=== PATIENT | male | born 1945 | race Caucasian/White ===

== ENCOUNTER 2018-01-30 13:59 | Emergency (ER) | payer MEDICARE, OTHER, SELFPAY ==
[2018-01-30] VITALS (14 sets, daily range): BP systolic 129–164; BP diastolic 67–80; PULSE 83–104; RESP 15–22; TEMP 36.8; O2SAT 97–100
--- NOTE | 2018-01-30 14:10 | DI.CT.S_ITS ---
PROCEDURE: CT HEAD/BRAIN WO CON INDICATIONS: stroke like symptoms TECHNIQUE: Noncontrast 4.5 mm thick angled axial sections acquired from the foramen magnum to the vertex, with coronal and sagittal reformats. For radiation dose reduction, the following was used: automated exposure control, adjustment of mA and/or kV according to patient size. COMPARISON: None. FINDINGS: Image quality: Excellent. CSF spaces: Basal cisterns are patent. No extra-axial fluid collections. The ventricles are symmetric in size and shape. Brain: No intracranial bleeds or masses. Small hyperdensity noted in the distal left middle cerebral artery M1 segment (series 4, image 32; series 2, image 9). There is cerebral volume loss for age, with resultant ventricular and sulcal prominence. There are periventricular and deep white matter chronic small vessel ischemic changes. Old, small, lacunar infarct in the left centrum semiovale. There is intracranial internal carotid artery atherosclerosis. Skull and face: Calvarium and visualized facial bones appear intact, without suspicious lesions. Sinuses: Visualized sinuses and mastoids are clear. IMPRESSION: 1. Possible small hyperdense clot noted in the distal M1 segment of the right middle cerebral artery. Recommend CTA of the head for further evaluation. 2. No intracranial hemorrhage. Dictated by: Bethany Neri MD, PhD on 01/30/2018 at 14:32 Approved by: Bethany Neri MD, PhD on 01/30/2018 at 14:37
--- NOTE | 2018-01-30 14:47 | DI.CT.S_ITS ---
PROCEDURE: CT ANGIO HEAD AND NECK INDICATIONS: abnormal finding on CT TECHNIQUE: Pre-contrast 4.5 mm thick sections acquired from the foramen magnum to the vertex. After the administration of intravenous contrast, 1 mm thick sections acquired from the aortic arch through the [place]. Post-contrast 4.5 mm thick sections then re-acquired from the foramen magnum to the vertex. 3-dimensional uluduee-kzyrxctuk-mlhmxcwhou (MIP) and/or volume rendering reformats were acquired of the central intracranial vasculature and neck separately. COMPARISON: None. FINDINGS: Image quality: Excellent. BRAIN: CSF spaces: Ventricles are normal in size and shape. Basal cisterns are patent. No extra-axial fluid collections. Brain: No midline shift. No intracranial bleeds or masses. Rodríguez-white matter interface appears intact. Skull and face: Calvarium and facial bones appear intact, without suspicious lesions. Orbits appear normal. Sinuses: Scattered mucosal thickening noted in the anterior ethmoid air cells. The mastoids are clear. HEAD CT ANGIOGRAPHY: Anterior circulation: Intracranial internal carotid arteries are normal in size and flow. The atherosclerotic calcifications noted in the cavernous segments of the internal carotid arteries bilaterally which do not cause of measurable stenosis. The flow within the paired anterior cerebral arteries is normal and symmetric. The flow within the middle cerebral arteries is normal and symmetric. The anterior communicating artery is seen. No aneurysms are seen. Posterior circulation: Visualized portions of the vertebral arteries demonstrate normal caliber, and join to form a normal appearing basilar artery. Flow within the posterior cerebral arteries is normal and symmetric. No aneurysms are seen. Normal contrast opacification of the dural sinuses. NECK CT ANGIOGRAPHY: Carotid system: The great vessels demonstrate a conventional anatomy as they arise from the aortic arch. Atherosclerotic calcifications noted in the visualized left coronary vasculature, the aortic arch and origins of the great vessels. The origins of the common carotid arteries appear patent. The common carotid arteries demonstrate normal caliber and courses. Atherosclerotic calcification and soft plaque at origins of internal carotid arteries bilaterally which causes less than 50% stenosis of the vessels. Posterior circulation: The origins of the vertebral arteries both appear widely patent. The more superior extracranial portions of both vertebral arteries also demonstrate normal courses and calibers. They join to form a normal appearing basilar artery. Soft tissues: Visualized neck soft tissues demonstrate no suspicious abnormalities. Bones: No suspicious bony lesions. Mild cervical spine degenerative disc disease and facet arthropathy noted. Visualized cervical spine appears normally aligned. IMPRESSION: 1. No acute intracranial disease process. 2. No large vessel occlusion, hemodynamically significant stenosis, vascular dissection or aneurysm. 3. Less than 50% stenosis of the origins of the internal carotid arteries bilaterally. 4. The vertebral arteries are fully patent. Any quantitative measurements of stenosis were performed using NASCET criteria. Dictated by: Bethany Neri MD, PhD on 01/30/2018 at 16:42 Approved by: Bethany Neri MD, PhD on 01/30/2018 at 16:54
--- NOTE | 2018-01-30 14:47 | ED.NEUROSD ---
HPI - Neuro Symptoms/Deficit General Chief Complaint: Neuro Symptoms/Deficit Stated Complaint: right arm went limp Time Seen by Provider: 01/30/18 14:08 Source: patient and family Mode of arrival: ambulatory Limitations: no limitations History of Present Illness HPI Narrative: 72-year-old former smoker presents with his in the chief complaint of sudden-onset right upper extremity weakness, trouble with coordination, and numbness and tingling that started at 1:00 p.m. while shopping at [employer]. The patient denies any other symptoms such as blurred vision, trouble with speech or ambulating. He presented to our department with these complaints and was not initially activated as a code stroke but was soon after arrival. Patient denies any headache, history of bleeding diatheses, use of blood thinners or recent stroke Onset (ago): hour(s) Last Observed Normal: 13:00 Timing confirmed by: spouse Location: right arm History of same: No Severity: mild Quality: weak, numb and tingling Relieving factors: none Exacerbating factors: none On Anticoagulants: No Associated symptoms: denies other symptoms Treatments Prior to Arrival: none Related Data Home Medications Medication Instructions Recorded Confirmed Vinny's Leg Cramp 1 tab PO BID 01/30/18 01/30/18 cyanocobalamin (vitamin B-12) 5,000 mcg SUBLINGUAL DAILY 01/30/18 01/30/18 [Vitamin B-12] finasteride 5 mg PO DAILY 01/30/18 01/30/18 lisinopril 10 mg PO DAILY 01/30/18 01/30/18 aspirin 81 mg tablet,delayed 81 mg PO DAILY 02/08/18 release atorvastatin 10 mg tablet 10 mg PO DAILY 02/08/18 Previous Rx's Medication Instructions Recorded tamsulosin 0.4 mg capsule 0.4 mg PO QDAY #90 cap 07/28/17 Allergies Allergy/AdvReac Type Severity Reaction Status Date / Time shellfish derived Allergy Severe ANAPHYLACTIC Verified 01/30/18 14:06 [SHELLFISH DERIVED] SHOCK Review of Systems Review of Systems All systems reviewed & are unremarkable except as noted in HPI and below Constitutional Denies chills, Denies fever(s), Denies lethargy and Reports weakness Eyes Denies change in vision, Denies eye discharge, Denies irritation and Denies loss of vision ENT Ears, Nose, Mouth, and Throat: Denies change in voice, Denies neck pain and Denies sore throat Cardiovascular Denies chest pain, Denies irregular heart rhythm, Denies lightheadedness, Denies palpitations, Denies dyspnea, Denies dyspnea on exertion and Denies orthopnea Respiratory Denies cough, Denies dyspnea, Denies dyspnea on exertion and Denies wheezing Gastrointestinal Gastrointestinal: Denies abdominal pain, Denies change in bowel habits, Denies diarrhea, Denies nausea and Denies vomiting Genitourinary Denies hematuria, Denies flank pain, Denies urinary incontinence and Denies urinary urgency Musculoskeletal Reports muscle weakness, Denies neck pain and Reports tingling Integumentary/Breasts Denies pruritus, Denies erythema, Denies rash and Denies wounds Neurologic Denies confusion, Denies loss of vision, Reports sensory deficit, Reports tingling and Reports weakness Psychiatric Denies anxiety, Denies confusion, Denies depression, Denies homicidal ideation and Denies suicidal ideation Endocrine Denies palpitations Hematologic/Lymphatic Denies easy bruising Allergic/Immunologic Denies wheezing [facility] Medical History Colon polyps (Resolved) History of elevated PSA (Chronic) Benign non-nodular prostatic hyperplasia with lower urinary tract symptoms (Chronic 05/13/15) Essential hypertension (Chronic 05/13/15) Pure hypercholesterolemia (Chronic 05/13/15) BPH (benign prostatic hyperplasia) (Chronic) Elevated PSA (Chronic) Hyperlipemia (Chronic) Hypertension (Chronic) Cataracts, bilateral (Resolved 03/2016) Surgical History Hx of prostate biopsy (Resolved ~2001) Hx of cataract surgery (Resolved ~04/2016) Family History Mother Parkinson's disease Sister Cancer Social History Smoking Status: Former smoker Exam Narrative Exam Narrative: GENERAL: This is a well-nourished, well-developed patient, in mild distress. HEAD: Atraumatic. Normocephalic. No temporal or scalp tenderness. EYES: Pupils equal round and reactive. Extraocular motions intact. No scleral icterus. No injection or drainage. ENT: Nose without bleeding, purulent drainage or septal hematoma. Throat without erythema, tonsillar hypertrophy or exudate. Uvula midline. Airway patent. NECK: Trachea midline. No JVD or lymphadenopathy. Supple, nontender, no meningeal signs. CARDIOVASCULAR: Regular rate and rhythm without murmurs, gallops, or rubs. RESPIRATORY: Clear to auscultation. Breath sounds equal bilaterally. No wheezes, rales, or rhonchi. GASTROINTESTINAL: Abdomen soft, non-tender, nondistended. No hepato-splenomegaly, or palpable masses. No guarding. EXTREMITIES: No clubbing, cyanosis, or edema. No joint tenderness, effusion, or edema noted. BACK: Nontender without deformity or crepitance. No flank tenderness. NEURO: AOx3. See NIH SKIN: No rash or erythema. Initial Vital Signs Initial Vital Signs: Vital Signs Temperature 98.2 F 01/30/18 14:06 Pulse Rate 83 01/30/18 14:06 Respiratory Rate 15 01/30/18 14:06 Blood Pressure 164/72 H 01/30/18 14:06 Pulse Oximetry 100 01/30/18 14:06 Course Orders Ordered: Discontinued Medications Alteplase, Recombinant (Activase) 7 mg 0.09 mg/kg (7 mg) IV NOW ONE Stop: 01/30/18 15:05 Last Admin: 01/30/18 15:07 Dose: 7 mg Alteplase, Recombinant (Activase) 64 mg 0.81 mg/kg (64 mg) IV NOW ONE Stop: 01/30/18 15:05 Last Admin: 01/30/18 15:13 Dose: 64 mg Aspirin (Aspirin Chew) 324 mg PO NOW ONE Stop: 01/30/18 14:42 Last Admin: 01/30/18 14:51 Dose: 324 mg Sodium Chloride (Normal Saline 0.9%) 1,000 mls @ 150 mls/hr IV CONT MARIBETH Last Infusion: 01/30/18 16:13 Dose: 0 mls/hr Admin: 01/30/18 14:51 Dose: 150 mls/hr Reevaluation(s) Reevaluation #1: NIHSS remains unchanged. Patient and consented for TPA tPA Contraindications for Ischemic Stroke from [employer] [place] on 01/30/2018 All calculations should be rechecked by clinician prior to use RESULT SUMMARY: Patient does NOT meet inclusion criteria for tPA. INPUTS: Age ?19 ?> 0 = No Clinical diagnosis of ischemic stroke causing neurological deficit ?> 0 = No Time of symptom onset <4.5 hours ?> 0 = No Intracranial hemorrhage on CT ?> 0 = No Clinical presentation suggests subarachnoid hemorrhage ?> 0 = No Neurosurgery, head trauma, or stroke in past 3 months ?> 0 = No Uncontrolled hypertension (>185 mmHg SBP or >110 mmHg DBP) ?> 0 = No History of intracranial hemorrhage ?> 0 = No Known intracranial arteriovenous malformation, neoplasm, or aneurysm ?> 0 = No Active internal bleeding ?> 0 = No Suspected/confirmed endocarditis ?> 0 = No Known bleeding diathesis ?> 0 = No Abnormal blood glucose (<50 mg/dL) ?> 0 = No Only minor or rapidly improving stroke symptoms ?> 0 = No Major surgery or serious non-head trauma in the previous 14 days ?> 0 = No History of gastrointestinal or urinary tract hemorrhage within 21 days ?> 0 = No Seizure at stroke onset ?> 0 = No Recent arterial puncture at a noncompressible site ?> 0 = No Recent lumbar puncture ?> 0 = No Post myocardial infarction pericarditis ?> 0 = No ?> 0 = No Age >80 years ?> 0 = No History of prior stroke and diabetes ?> 0 = No Any active anticoagulant use (even with INR <1.7) ?> 0 = No <calculator id='[id number]'>NIHSS</calculator> >25 ?> 0 = No CT shows multilobar infarction (hypodensity >1/3 cerebral hemisphere) ?> 0 = No tPA (Tissue Plasminogen Activator) Dosing for Stroke Calculator from [employer] [place] on 01/30/2018 All calculations should be rechecked by clinician prior to use RESULT SUMMARY: 7.1 mg Bolus dose, given IV over 1 min 64.2 mg Infusion, given IV over 60 mins 28.6 mg Waste, to be discarded INPUTS: Weight ?> 79.3 kg Approved by: Bethany Neri MD, PhD on 01/30/2018 at 14:37 Reevaluation #2: tPA bolus @ 1507 (7.1mg) tPA drip (64.2mg) Reevaluation #3: patient and family have had all questions answered to their apparent satisfaction. RUE now has full function. Patient denies KRAUS, abdominal pain, N/V, foul taste in mouth. Time: 19:07 Consultations Consultation #1: call to [facility] Stroke on receipt of Head CT. Discussion of case, lack of contraindications, review of CT leads to decision to recommend TPA. Proceed to CTA Consultation #2: Neurology is happy to accept post tpa patient at [facility], but prior to transfer they switch location to [place]. Hospitalist (Dr. Singh) Vital Signs - 8 hr 01/30/18 14:06 01/30/18 15:21 01/30/18 15:26 Temperature 98.2 F Pulse Rate 83 96 H 98 H Respiratory Rate 15 18 16 Blood Pressure 164/72 H Blood Pressure [Left Arm] 152/77 H 149/77 H Pulse Oximetry 100 97 99 01/30/18 15:30 01/30/18 15:45 01/30/18 16:00 Temperature Pulse Rate 97 H 87 100 H Respiratory Rate 18 18 20 Blood Pressure Blood Pressure [Left Arm] 143/80 H 141/78 H 136/73 Pulse Oximetry 98 98 99 01/30/18 16:30 01/30/18 16:49 01/30/18 17:14 Temperature Pulse Rate 99 H 100 H 98 H Respiratory Rate 21 22 Blood Pressure Blood Pressure [Left Arm] 148/67 H 137/70 136/68 Pulse Oximetry 98 98 97 01/30/18 17:30 01/30/18 18:10 01/30/18 19:11 Temperature Pulse Rate 98 H 104 H 95 H Respiratory Rate 20 20 18 Blood Pressure Blood Pressure [Left Arm] 142/74 H 140/71 137/75 Pulse Oximetry 97 98 98 MDM - Neuro Symptoms/Deficit Differential Diagnosis Likely cerebrovascular accident Medical Records Attestation: I reviewed the patient's medical records. Lab Data Attestation: I reviewed the patient's lab results. Result diagrams: 01/30/18 15:06 01/30/18 15:06 Lab Results 01/30/18 01/30/18 01/30/18 Range/Units 15:00 15:06 15:06 WBC 11.1 H (4.5-11.0) X10^3/uL RBC 4.82 (4.5-5.9) X10^6/uL Hgb 14.5 (13.5-17.5) g/dL Hct 42.5 (41-53) % MCV 88.2 (80-100) fL MCH 30.1 (26-34) PG MCHC 34.2 (30-36) % RDW 13.3 (11.6-14.8) % Plt Count 304 (150-400) X10^3/uL Neut % (Auto) 75.1 H (50-75) % Lymph % (Auto) 16.3 L (25-40) % [place] % (Auto) 6.6 (3-14) % Eos % (Auto) 1.2 L (2-4) % Baso % (Auto) 0.8 (0-2) % Neut # (Auto) 8300 H (4724-6671) /uL PT 10.5 (10.1-12.7) SECONDS INR 1.0 (0.9-1.3) APTT 25 L (26.4-36.2) SECONDS Sodium (137-145) mmol/L Potassium (3.4-5.1) mmol/L Chloride (98-107) mmol/L Carbon Dioxide (22-32) mmol/L BUN (9-20) mg/dL Creatinine (0.66-1.25) mg/dL Estimated GFR (>60) mL/min BUN/Creatinine Ratio (6-22) Glucose (80-110) mg/dL Calcium (8.4-10.2) mg/dL Urine Opiates Screen Negative (Negative) Ur Oxycodone Screen Negative (Negative) Urine Methadone Screen Negative (Negative) Ur Barbiturates Screen Negative (Negative) U Tricyclic Antidepress Negative (Negative) Ur Phencyclidine Scrn Negative (Negative) Ur Amphetamines Screen Negative (Negative) U Methamphetamines Scrn Negative (Negative) Ur MDMA Scrn (Ecstasy) Negative (Negative) U Benzodiazepines Scrn Negative (Negative) Urine Cocaine Screen Negative (Negative) U Marijuana (THC) Screen Negative (Negative) 01/30/18 Range/Units 15:06 WBC (4.5-11.0) X10^3/uL RBC (4.5-5.9) X10^6/uL Hgb (13.5-17.5) g/dL Hct (41-53) % MCV (80-100) fL MCH (26-34) PG MCHC (30-36) % RDW (11.6-14.8) % Plt Count (150-400) X10^3/uL Neut % (Auto) (50-75) % Lymph % (Auto) (25-40) % [place] % (Auto) (3-14) % Eos % (Auto) (2-4) % Baso % (Auto) (0-2) % Neut # (Auto) (8200-9797) /uL PT (10.1-12.7) SECONDS INR (0.9-1.3) APTT (26.4-36.2) SECONDS Sodium 139 (137-145) mmol/L Potassium 5.3 H (3.4-5.1) mmol/L Chloride 102 (98-107) mmol/L Carbon Dioxide 26 (22-32) mmol/L BUN 15 (9-20) mg/dL Creatinine 0.90 (0.66-1.25) mg/dL Estimated GFR > 60.0 (>60) mL/min BUN/Creatinine Ratio 16.7 (6-22) Glucose 110 (80-110) mg/dL Calcium 9.1 (8.4-10.2) mg/dL Urine Opiates Screen (Negative) Ur Oxycodone Screen (Negative) Urine Methadone Screen (Negative) Ur Barbiturates Screen (Negative) U Tricyclic Antidepress (Negative) Ur Phencyclidine Scrn (Negative) Ur Amphetamines Screen (Negative) U Methamphetamines Scrn (Negative) Ur MDMA Scrn (Ecstasy) (Negative) U Benzodiazepines Scrn (Negative) Urine Cocaine Screen (Negative) U Marijuana (THC) Screen (Negative) Point of Care Testing Glucose POC 105 Urine Dip Bedside Urine Glucose Negative Bedside Urine Bilirubin - Negative Bedside Urine Ketone - Negative Urine Specific [place] 1.015 Bedside Urine Occult Blood - Negative Bedside Urine pH 6.5 Bedside Urine Protein - Negative Bedside Urine Urobilinogen - Negative Bedside Urine Nitrite - Negative Bedside Urine Leukocytes - Negative Esterase Imaging Data CT scan - head: Radiologist's impression: [address] [address] [address] Scan Report Signed Patient: Nikita Crsos LMR#: [id number] : 1946Acct:[id number] Age/Sex: 72 / MDate of Service: 01/30/18 Loc: ED Accession Number: [id number] Procedure: CT head/brain wo con Ordering Provider: Buck Hopkins D.O. PROCEDURE: CT HEAD/BRAIN WO CON INDICATIONS: stroke like symptoms TECHNIQUE: Noncontrast 4.5 mm thick angled axial sections acquired from the foramen magnum to the vertex, with coronal and sagittal reformats. For radiation dose reduction, the following was used: automated exposure control, adjustment of mA and/or kV according to patient size. COMPARISON: None. FINDINGS: Image quality: Excellent. CSF spaces: Basal cisterns are patent. No extra-axial fluid collections. The ventricles are symmetric in size and shape. Brain: No intracranial bleeds or masses. Small hyperdensity noted in the distal left middle cerebral artery M1 segment (series 4, image 32; series 2, image 9). There is cerebral volume loss for age, with resultant ventricular and sulcal prominence. There are periventricular and deep white matter chronic small vessel ischemic changes. Old, small, lacunar infarct in the left centrum semiovale. There is intracranial internal carotid artery atherosclerosis. Skull and face: Calvarium and visualized facial bones appear intact, without suspicious lesions. Sinuses: Visualized sinuses and mastoids are clear. IMPRESSION: 1. Possible small hyperdense clot noted in the distal M1 segment of the right middle cerebral artery. Recommend CTA of the head for further evaluation. 2. No intracranial hemorrhage. Dictated by: Bethany Neri MD, PhD on 01/30/2018 at 14:32 Approved by: Bethany Neri MD, PhD on 01/30/2018 at 14:37 ECG Data Attestation: I personally reviewed and interpreted this ECG as follows: Prior ECG tracings: not available for review Interpretation: Normal sinus rhythm, rate 91, RBBB, no ectopy Critical Care Time Critical Care Time: Yes Total Critical Care Time: 30 Attestation: The high probability of a clinically significant, sudden or life threatening deterioration of the [neurologic] system(s) required my full and direct attention, intervention and personal management. The aggregate critical care time was [30] minutes. This time is in addition to time spent performing reported procedures but includes the following: [x] Data Review and interpretation [x] Patient assessment and monitoring of vital signs [x] Documentation [x] Medication orders and management Discharge Plan Departure Patient Disposition: [facility] Clinical Impression: Acute CVA (cerebrovascular accident), Received intravenous tissue plasminogen activator (tPA) in emergency department, CVA (cerebral vascular accident) Discharge Date/Time: 01/30/18 20:59 Interventions: ED Discharge Assessment Last Done: 01/30/18 20:50 Prescriptions: No Action tamsulosin [Flomax] 0.4 mg capsule,extended release 24hr 0.4 mg PO QDAY Qty: 90 RF: 3 atorvastatin 10 mg tablet 10 mg PO DAILY RF: 0 aspirin [Enteric Coated Aspirin] 81 mg tablet,delayed release (DR/EC) 81 mg PO DAILY RF: 0 cyanocobalamin (vitamin B-12) [Vitamin B-12] 5,000 mcg Tablet, Sublingual 5,000 mcg SUBLINGUAL DAILY RF: 0 Vinny's Leg Cramp 1 tab PO BID RF: 0 lisinopril 10 mg tablet 10 mg PO DAILY RF: 0 finasteride 5 mg tablet 5 mg PO DAILY RF: 0
[2018-01-30] MEDS: SODIUM CHLORIDE 0.9% 1,000 ML 150 ML IV (14:51)
[2018-01-30] MEDS: ASPIRIN 81 MG TAB 324 MG PO (14:51)
[2018-01-30] MEDS: ALTEPLASE 100 MG VIAL 7 MG IV (15:07)
[2018-01-30 15:09] LABS: Urine Amphetamines Negative (Negative); Urine Barbiturates Negative (Negative); Urine Benzodiazepines Negative (Negative); Urine Cocaine Negative (Negative); Urine MDMA Negative (Negative); Urine Methadone Negative (Negative); Urine Methamphetamines Negative (Negative); Urine Morphine/Opi cutoff 2000 Negative (Negative); Urine Oxycodone Negative (Negative); Urine Phencyclidine Negative (Negative); Urine Tetrahydrocannabinol Negative (Negative); Urine Tricyclic Antidepressant Negative (Negative)
[2018-01-30] MEDS: ALTEPLASE 100 MG VIAL 64 MG IV (15:13)
--- NOTE | 2018-01-30 15:15 | ED_ITS ---
HPI - Neuro Symptoms/Deficit General Chief Complaint: Neuro Symptoms/Deficit Stated Complaint: right arm went limp Time Seen by Provider: 01/30/18 14:08 Source: patient and family Mode of arrival: ambulatory Limitations: no limitations History of Present Illness HPI Narrative: 72-year-old former smoker presents with his in the chief complaint of sudden-onset right upper extremity weakness, trouble with coordination, and numbness and tingling that started at 1:00 p.m. while shopping at [employer]. The patient denies any other symptoms such as blurred vision, trouble with speech or ambulating. He presented to our department with these complaints and was not initially activated as a code stroke but was soon after arrival. Patient denies any headache, history of bleeding diatheses, use of blood thinners or recent stroke Onset (ago): hour(s) Last Observed Normal: 13:00 Timing confirmed by: spouse Location: right arm History of same: No Severity: mild Quality: weak, numb and tingling Relieving factors: none Exacerbating factors: none On Anticoagulants: No Associated symptoms: denies other symptoms Treatments Prior to Arrival: none Related Data Home Medications Medication Instructions Recorded Confirmed Vinny's Leg Cramp 1 tab PO BID 01/30/18 01/30/18 cyanocobalamin (vitamin B-12) 5,000 mcg SUBLINGUAL DAILY 01/30/18 01/30/18 [Vitamin B-12] finasteride 5 mg PO DAILY 01/30/18 01/30/18 lisinopril 10 mg PO DAILY 01/30/18 01/30/18 aspirin 81 mg tablet,delayed 81 mg PO DAILY 02/08/18 release atorvastatin 10 mg tablet 10 mg PO DAILY 02/08/18 Previous Rx's Medication Instructions Recorded tamsulosin 0.4 mg capsule 0.4 mg PO QDAY #90 cap 07/28/17 Allergies Allergy/AdvReac Type Severity Reaction Status Date / Time shellfish derived Allergy Severe ANAPHYLACTIC Verified 01/30/18 14:06 [SHELLFISH DERIVED] SHOCK Review of Systems Review of Systems All systems reviewed & are unremarkable except as noted in HPI and below Constitutional Denies chills, Denies fever(s), Denies lethargy and Reports weakness Eyes Denies change in vision, Denies eye discharge, Denies irritation and Denies loss of vision ENT Ears, Nose, Mouth, and Throat: Denies change in voice, Denies neck pain and Denies sore throat Cardiovascular Denies chest pain, Denies irregular heart rhythm, Denies lightheadedness, Denies palpitations, Denies dyspnea, Denies dyspnea on exertion and Denies orthopnea Respiratory Denies cough, Denies dyspnea, Denies dyspnea on exertion and Denies wheezing Gastrointestinal Gastrointestinal: Denies abdominal pain, Denies change in bowel habits, Denies diarrhea, Denies nausea and Denies vomiting Genitourinary Denies hematuria, Denies flank pain, Denies urinary incontinence and Denies urinary urgency Musculoskeletal Reports muscle weakness, Denies neck pain and Reports tingling Integumentary/Breasts Denies pruritus, Denies erythema, Denies rash and Denies wounds Neurologic Denies confusion, Denies loss of vision, Reports sensory deficit, Reports tingling and Reports weakness Psychiatric Denies anxiety, Denies confusion, Denies depression, Denies homicidal ideation and Denies suicidal ideation Endocrine Denies palpitations Hematologic/Lymphatic Denies easy bruising Allergic/Immunologic Denies wheezing [facility] Medical History Colon polyps (Resolved) History of elevated PSA (Chronic) Benign non-nodular prostatic hyperplasia with lower urinary tract symptoms ( Chronic 05/13/15) Essential hypertension (Chronic 05/13/15) Pure hypercholesterolemia (Chronic 05/13/15) BPH (benign prostatic hyperplasia) (Chronic) Elevated PSA (Chronic) Hyperlipemia (Chronic) Hypertension (Chronic) Cataracts, bilateral (Resolved 03/2016) Surgical History Hx of prostate biopsy (Resolved ~2001) Hx of cataract surgery (Resolved ~04/2016) Family History Mother Parkinson's disease Sister Cancer Social History Smoking Status: Former smoker Exam Narrative Exam Narrative: GENERAL: This is a well-nourished, well-developed patient, in mild distress. HEAD: Atraumatic. Normocephalic. No temporal or scalp tenderness. EYES: Pupils equal round and reactive. Extraocular motions intact. No scleral icterus. No injection or drainage. ENT: Nose without bleeding, purulent drainage or septal hematoma. Throat without erythema, tonsillar hypertrophy or exudate. Uvula midline. Airway patent. NECK: Trachea midline. No JVD or lymphadenopathy. Supple, nontender, no meningeal signs. CARDIOVASCULAR: Regular rate and rhythm without murmurs, gallops, or rubs. RESPIRATORY: Clear to auscultation. Breath sounds equal bilaterally. No wheezes , rales, or rhonchi. GASTROINTESTINAL: Abdomen soft, non-tender, nondistended. No hepato-splenomegaly , or palpable masses. No guarding. EXTREMITIES: No clubbing, cyanosis, or edema. No joint tenderness, effusion, or edema noted. BACK: Nontender without deformity or crepitance. No flank tenderness. NEURO: AOx3. See NIH SKIN: No rash or erythema. Initial Vital Signs Initial Vital Signs: Vital Signs Temperature 98.2 F 01/30/18 14:06 Pulse Rate 83 01/30/18 14:06 Respiratory Rate 15 01/30/18 14:06 Blood Pressure 164/72 H 01/30/18 14:06 Pulse Oximetry 100 01/30/18 14:06 Course Orders Ordered: Discontinued Medications Alteplase, Recombinant (Activase) 7 mg 0.09 mg/kg (7 mg) IV NOW ONE Stop: 01/30/18 15:05 Last Admin: 01/30/18 15:07 Dose: 7 mg Alteplase, Recombinant (Activase) 64 mg 0.81 mg/kg (64 mg) IV NOW ONE Stop: 01/30/18 15:05 Last Admin: 01/30/18 15:13 Dose: 64 mg Aspirin (Aspirin Chew) 324 mg PO NOW ONE Stop: 01/30/18 14:42 Last Admin: 01/30/18 14:51 Dose: 324 mg Sodium Chloride (Normal Saline 0.9%) 1,000 mls @ 150 mls/hr IV CONT MARIBETH Last Infusion: 01/30/18 16:13 Dose: 0 mls/hr Admin: 01/30/18 14:51 Dose: 150 mls/hr Reevaluation(s) Reevaluation #1: NIHSS remains unchanged. Patient and consented for TPA tPA Contraindications for Ischemic Stroke from [facility] on 01/30/2018 All calculations should be rechecked by clinician prior to use RESULT SUMMARY: Patient does NOT meet inclusion criteria for tPA. INPUTS: Age ?19 ?> 0 = No Clinical diagnosis of ischemic stroke causing neurological deficit ?> 0 = No Time of symptom onset <4.5 hours ?> 0 = No Intracranial hemorrhage on CT ?> 0 = No Clinical presentation suggests subarachnoid hemorrhage ?> 0 = No Neurosurgery, head trauma, or stroke in past 3 months ?> 0 = No Uncontrolled hypertension (>185 mmHg SBP or >110 mmHg DBP) ?> 0 = No History of intracranial hemorrhage ?> 0 = No Known intracranial arteriovenous malformation, neoplasm, or aneurysm ?> 0 = No Active internal bleeding ?> 0 = No Suspected/confirmed endocarditis ?> 0 = No Known bleeding diathesis ?> 0 = No Abnormal blood glucose (<50 mg/dL) ?> 0 = No Only minor or rapidly improving stroke symptoms ?> 0 = No Major surgery or serious non-head trauma in the previous 14 days ?> 0 = No History of gastrointestinal or urinary tract hemorrhage within 21 days ?> 0 = No Seizure at stroke onset ?> 0 = No Recent arterial puncture at a noncompressible site ?> 0 = No Recent lumbar puncture ?> 0 = No Post myocardial infarction pericarditis ?> 0 = No ?> 0 = No Age >80 years ?> 0 = No History of prior stroke and diabetes ?> 0 = No Any active anticoagulant use (even with INR <1.7) ?> 0 = No <calculator id='[id number]'>NIHSS</calculator> >25 ?> 0 = No CT shows multilobar infarction (hypodensity >1/3 cerebral hemisphere) ?> 0 = No tPA (Tissue Plasminogen Activator) Dosing for Stroke Calculator from [facility] on 01/30/2018 All calculations should be rechecked by clinician prior to use RESULT SUMMARY: 7.1 mg Bolus dose, given IV over 1 min 64.2 mg Infusion, given IV over 60 mins 28.6 mg Waste, to be discarded INPUTS: Weight ?> 79.3 kg Approved by: Bethany Neri MD, PhD on 01/30/2018 at 14:37 Reevaluation #2: tPA bolus @ 1507 (7.1mg) tPA drip (64.2mg) Reevaluation #3: patient and family have had all questions answered to their apparent satisfaction. RUE now has full function. Patient denies KRAUS, abdominal pain, N/V, foul taste in mouth. Time: 19:07 Consultations Consultation #1: call to [facility] Stroke on receipt of Head CT. Discussion of case, lack of contraindications, review of CT leads to decision to recommend TPA. Proceed to CTA Consultation #2: Neurology is happy to accept post tpa patient at [facility], but prior to transfer they switch location to [place]. Hospitalist (Dr. Singh) Vital Signs - 8 hr 01/30/18 14:06 01/30/18 15:21 01/30/18 15:26 Temperature 98.2 F Pulse Rate 83 96 H 98 H Respiratory Rate 15 18 16 Blood Pressure 164/72 H Blood Pressure [Left Arm] 152/77 H 149/77 H Pulse Oximetry 100 97 99 01/30/18 15:30 01/30/18 15:45 01/30/18 16:00 Temperature Pulse Rate 97 H 87 100 H Respiratory Rate 18 18 20 Blood Pressure Blood Pressure [Left Arm] 143/80 H 141/78 H 136/73 Pulse Oximetry 98 98 99 01/30/18 16:30 01/30/18 16:49 01/30/18 17:14 Temperature Pulse Rate 99 H 100 H 98 H Respiratory Rate 21 22 Blood Pressure Blood Pressure [Left Arm] 148/67 H 137/70 136/68 Pulse Oximetry 98 98 97 01/30/18 17:30 01/30/18 18:10 01/30/18 19:11 Temperature Pulse Rate 98 H 104 H 95 H Respiratory Rate 20 20 18 Blood Pressure Blood Pressure [Left Arm] 142/74 H 140/71 137/75 Pulse Oximetry 97 98 98 MDM - Neuro Symptoms/Deficit Differential Diagnosis Likely cerebrovascular accident Medical Records Attestation: I reviewed the patient's medical records. Lab Data Attestation: I reviewed the patient's lab results. Result diagrams: 01/30/18 15:06 01/30/18 15:06 Lab Results 01/30/18 01/30/18 01/30/18 Range/Units 15:00 15:06 15:06 WBC 11.1 H (4.5-11.0) X10^3/uL RBC 4.82 (4.5-5.9) X10^6/uL Hgb 14.5 (13.5-17.5) g/dL Hct 42.5 (41-53) % MCV 88.2 (80-100) fL MCH 30.1 (26-34) PG MCHC 34.2 (30-36) % RDW 13.3 (11.6-14.8) % Plt Count 304 (150-400) X10^3/uL Neut % (Auto) 75.1 H (50-75) % Lymph % (Auto) 16.3 L (25-40) % [place] % (Auto) 6.6 (3-14) % Eos % (Auto) 1.2 L (2-4) % Baso % (Auto) 0.8 (0-2) % Neut # (Auto) 8300 H (5635-6959) /uL PT 10.5 (10.1-12.7) SECONDS INR 1.0 (0.9-1.3) APTT 25 L (26.4-36.2) SECONDS Sodium (137-145) mmol/L Potassium (3.4-5.1) mmol/L Chloride (98-107) mmol/L Carbon Dioxide (22-32) mmol/L BUN (9-20) mg/dL Creatinine (0.66-1.25) mg/dL Estimated GFR (>60) mL/min BUN/Creatinine Ratio (6-22) Glucose (80-110) mg/dL Calcium (8.4-10.2) mg/dL Urine Opiates Screen Negative (Negative) Ur Oxycodone Screen Negative (Negative) Urine Methadone Screen Negative (Negative) Ur Barbiturates Screen Negative (Negative) U Tricyclic Antidepress Negative (Negative) Ur Phencyclidine Scrn Negative (Negative) Ur Amphetamines Screen Negative (Negative) U Methamphetamines Scrn Negative (Negative) Ur MDMA Scrn (Ecstasy) Negative (Negative) U Benzodiazepines Scrn Negative (Negative) Urine Cocaine Screen Negative (Negative) U Marijuana (THC) Screen Negative (Negative) 01/30/18 Range/Units 15:06 WBC (4.5-11.0) X10^3/uL RBC (4.5-5.9) X10^6/uL Hgb (13.5-17.5) g/dL Hct (41-53) % MCV (80-100) fL MCH (26-34) PG MCHC (30-36) % RDW (11.6-14.8) % Plt Count (150-400) X10^3/uL Neut % (Auto) (50-75) % Lymph % (Auto) (25-40) % [place] % (Auto) (3-14) % Eos % (Auto) (2-4) % Baso % (Auto) (0-2) % Neut # (Auto) (4037-5502) /uL PT (10.1-12.7) SECONDS INR (0.9-1.3) APTT (26.4-36.2) SECONDS Sodium 139 (137-145) mmol/L Potassium 5.3 H (3.4-5.1) mmol/L Chloride 102 (98-107) mmol/L Carbon Dioxide 26 (22-32) mmol/L BUN 15 (9-20) mg/dL Creatinine 0.90 (0.66-1.25) mg/dL Estimated GFR > 60.0 (>60) mL/min BUN/Creatinine Ratio 16.7 (6-22) Glucose 110 (80-110) mg/dL Calcium 9.1 (8.4-10.2) mg/dL Urine Opiates Screen (Negative) Ur Oxycodone Screen (Negative) Urine Methadone Screen (Negative) Ur Barbiturates Screen (Negative) U Tricyclic Antidepress (Negative) Ur Phencyclidine Scrn (Negative) Ur Amphetamines Screen (Negative) U Methamphetamines Scrn (Negative) Ur MDMA Scrn (Ecstasy) (Negative) U Benzodiazepines Scrn (Negative) Urine Cocaine Screen (Negative) U Marijuana (THC) Screen (Negative) Point of Care Testing Glucose POC 105 Urine Dip Bedside Urine Glucose Negative Bedside Urine Bilirubin - Negative Bedside Urine Ketone - Negative Urine Specific [place] 1.015 Bedside Urine Occult Blood - Negative Bedside Urine pH 6.5 Bedside Urine Protein - Negative Bedside Urine Urobilinogen - Negative Bedside Urine Nitrite - Negative Bedside Urine Leukocytes - Negative Esterase Imaging Data CT scan - head: Radiologist's impression: [address] [address] [address] Scan Report Signed Patient: Nikita Cross LMR#: [id number] : 1946Acct:[id number] Age/Sex: 72 / MDate of Service: 01/30/18 Loc: ED Accession Number: [id number] Procedure: CT head/brain wo con Ordering Provider: Buck Hopkins D.O. PROCEDURE: CT HEAD/BRAIN WO CON INDICATIONS: stroke like symptoms TECHNIQUE: Noncontrast 4.5 mm thick angled axial sections acquired from the foramen magnum to the vertex, with coronal and sagittal reformats. For radiation dose reduction, the following was used: automated exposure control, adjustment of mA and/or kV according to patient size. COMPARISON: None. FINDINGS: Image quality: Excellent. CSF spaces: Basal cisterns are patent. No extra-axial fluid collections. The ventricles are symmetric in size and shape. Brain: No intracranial bleeds or masses. Small hyperdensity noted in the distal left middle cerebral artery M1 segment (series 4, image 32; series 2, image 9). There is cerebral volume loss for age, with resultant ventricular and sulcal prominence. There are periventricular and deep white matter chronic small vessel ischemic changes. Old, small, lacunar infarct in the left centrum semiovale. There is intracranial internal carotid artery atherosclerosis. Skull and face: Calvarium and visualized facial bones appear intact, without suspicious lesions. Sinuses: Visualized sinuses and mastoids are clear. IMPRESSION: 1. Possible small hyperdense clot noted in the distal M1 segment of the right middle cerebral artery. Recommend CTA of the head for further evaluation. 2. No intracranial hemorrhage. Dictated by: Bethany Neri MD, PhD on 01/30/2018 at 14:32 Approved by: Bethany Neri MD, PhD on 01/30/2018 at 14:37 ECG Data Attestation: I personally reviewed and interpreted this ECG as follows: Prior ECG tracings: not available for review Interpretation: Normal sinus rhythm, rate 91, RBBB, no ectopy Critical Care Time Critical Care Time: Yes Total Critical Care Time: 30 Attestation: The high probability of a clinically significant, sudden or life threatening deterioration of the [neurologic] system(s) required my full and direct attention, intervention and personal management. The aggregate critical care time was [30] minutes. This time is in addition to time spent performing reported procedures but includes the following: [x] Data Review and interpretation [x] Patient assessment and monitoring of vital signs [x] Documentation [x] Medication orders and management Discharge Plan Departure Patient Disposition: [facility] Clinical Impression: Acute CVA (cerebrovascular accident), Received intravenous tissue plasminogen activator (tPA) in emergency department, CVA (cerebral vascular accident) Discharge Date/Time: 01/30/18 20:59 Interventions: ED Discharge Assessment Last Done: 01/30/18 20:50 Prescriptions: No Action tamsulosin [Flomax] 0.4 mg capsule,extended release 24hr 0.4 mg PO QDAY Qty: 90 RF: 3 atorvastatin 10 mg tablet 10 mg PO DAILY RF: 0 aspirin [Enteric Coated Aspirin] 81 mg tablet,delayed release (DR/EC) 81 mg PO DAILY RF: 0 cyanocobalamin (vitamin B-12) [Vitamin B-12] 5,000 mcg Tablet, Sublingual 5,000 mcg SUBLINGUAL DAILY RF: 0 Vinny's Leg Cramp 1 tab PO BID RF: 0 lisinopril 10 mg tablet 10 mg PO DAILY RF: 0 finasteride 5 mg tablet 5 mg PO DAILY RF: 0
[2018-01-30 15:19] LABS: Add Manual Diff / Slide Review NO; Basophils Percent Auto 0.8 % (0-2); Eosinophils Percent Auto 1.2 % (2-4); Hematocrit 42.5 % (41-53); Hemoglobin 14.5 g/dL (13.5-17.5); Lymphocytes Percent Auto 16.3 % (25-40); Mean Corpuscular HGB Conc 34.2 % (30-36); Mean Corpuscular Hemoglobin 30.1 PG (26-34); Mean Corpuscular Volume 88.2 fL (80-100); Monocytes Percent Auto 6.6 % (3-14); Neutrophils Absolute Auto 8300 /uL (3000-5900); Neutrophils Percent Auto 75.1 % (50-75); Platelet Count 304 X10^3/uL (150-400); Red Blood Cell Count 4.82 X10^6/uL (4.5-5.9); Red Cell Distribution Width 13.3 % (11.6-14.8); White Blood Cell Count 11.1 X10^3/uL (4.5-11.0)
[2018-01-30 15:26] LABS: Prothrombin Time 10.5 SECONDS (10.1-12.7)
[2018-01-30 15:28] LABS: PTT Partial Thromboplastin Tim 25 SECONDS (26.4-36.2)
[2018-01-30 15:34] LABS: BUN Creatinine Ratio 16.7 (6-22); Blood Urea Nitrogen 15 mg/dL (9-20); Calcium 9.1 mg/dL (8.4-10.2); Carbon Dioxide 26 mmol/L (22-32); Chloride 102 mmol/L (98-107); Estimated Glomerular Filt Rate > 60.0 mL/min (>60); Glucose 110 mg/dL (80-110); Sodium 139 mmol/L (137-145)
[2018-01-30 15:36] LABS: HEMOLYSIS 180 (0-50)
[2018-01-30 15:37] LABS: Potassium 5.3 mmol/L (3.4-5.1)
--- NOTE | 2018-01-30 19:22 | PC.NURSE ---
Called and gave report to Jett JOLLY at [facility] as I am the off going nurse and have taken care of pt since arrival. Gave report to Kasey JOLLY who will be caring for pt until ambulance.
== END 2018-01-30 20:59 | disposition short-term general hospital (02) ==
PROVIDERS: Emergency Provider Emergency Medicine; PCP Family Medicine
DX: I63.9 Cerebral infarction, unspecified (principal)
CPT/HCPCS: 70450; 70496; 70498; 80048; 80305; 81003; 82962; 85025; 85610; 85730; 93005; 96361; 96374; 99285; 99291; 99292; J2997; Q9967

== ENCOUNTER → 2018-03-30 09:24 | Outpatient (CLI) | payer MEDICARE, OTHER, SELFPAY ==
[2018-03-30 10:54] LABS: Hemoglobin A1C% w Est Avg Glu 5.9 % (4.0-6.0)
[2018-03-30 10:55] LABS: C-Reactive Protein Quant 0.8 mg/dL (<1.0)
[2018-03-30 11:00] LABS: Erythrocyte Sedimentation Rate 59 MM/HR (0-15)
[2018-03-30 11:39] LABS: Thyroid Stimulating Hormone 1.42 uIU/mL (0.47-4.68)
[2018-04-01 21:44] LABS: ANA Screen, IFA Negative (Negative)
== END ==
PROVIDERS: Family Provider Student in an Organized Health Care Education/Training Program; PCP Student in an Organized Health Care Education/Training Program; Visit Provider Ophthalmology
DX: H53.2 Diplopia (principal); E11.9 Type 2 diabetes mellitus without complications
CPT/HCPCS: 36415; 83036; 83519; 84443; 85651; 86038; 86140

== ENCOUNTER → 2018-04-04 11:41 | Outpatient (CLI) | payer MEDICARE, OTHER, SELFPAY ==
--- NOTE | 2018-04-04 11:43 | DI.US.S_ITS ---
PROCEDURE: US ABD AORTA ANEURYSM SCREEN INDICATIONS: AAA SCREEN TECHNIQUE: Real time scanning was performed of the aorta and iliac arteries, with image documentation. COMPARISON: [facility], [place], ABDOMEN COMPLETE, 05/16/2015, 8:35. FINDINGS: Aorta: Proximal aortic is not seen, secondary to overlying bowel gas. Mid-aorta measures 1.8 cm. Distal aortic diameter is 1.8 cm. Iliac arteries: Right common iliac artery measures 1 cm. Left common iliac artery measures 1 cm. IMPRESSION: Negative for aneurysm. Dictated by: Malcolm Duncan M.D. on 04/04/2018 at 12:05 Approved by: Malcolm Duncan M.D. on 04/04/2018 at 12:05
== END ==
PROVIDERS: Family Provider Student in an Organized Health Care Education/Training Program; PCP Student in an Organized Health Care Education/Training Program; Visit Provider Student in an Organized Health Care Education/Training Program
DX: Z13.6 Encounter for screening for cardiovascular disorders (principal); Z87.891 Personal history of nicotine dependence
CPT/HCPCS: 76706

== ENCOUNTER 2018-12-11 07:56 | Day surgery (SDC) | payer MEDICARE, OTHER, SELFPAY ==
[2018-12-11] VITALS (8 sets, daily range): BP systolic 98–146; BP diastolic 57–78; PULSE 69–91; RESP 12–17; TEMP 36.4–36.9; O2SAT 94–99; BMI 25.8
--- NOTE | 2018-12-11 08:35 | PM.HP.1 ---
History of Present Illness History of Present Illness Date Patient Seen: 12/11/18 Time Patient Seen: 08:36 Chief complaint: [id number] Narrative: Patient presents for colorectal screening. They had a previous screening 5 years ago notable for polyps. On further history denies any recent gastrointestinal symptoms. No nausea, vomiting, abdominal pain, loss of appetite, unexplained weight loss, change in bowel habits, diarrhea, constipation, melena, hematochezia, or bright red blood per rectum. Patient History Medical History Benign non-nodular prostatic hyperplasia with lower urinary tract symptoms (Chronic 05/13/15) BPH (benign prostatic hyperplasia) (Chronic) Bruises easily (Acute) Cataracts, bilateral (Resolved 03/2016) Colon polyps (Resolved) Diverticulitis (Acute) Elevated PSA (Chronic) Enlarged prostate (Acute) Essential hypertension (Chronic 05/13/15) Former smoker (Acute) History of elevated PSA (Chronic) Hyperlipemia (Chronic) Hypertension (Chronic) Impaired vision (Acute) Pure hypercholesterolemia (Chronic 05/13/15) Wears dentures (Acute) Surgical History History of colonoscopy (Acute) Hx of cataract surgery (Resolved ~04/2016) Hx of prostate biopsy (Resolved ~2001) Family History Mother Parkinson's disease Sister Cancer Social History household members: spouse Smoking Status: Former smoker Family & Social History Family History Mother Parkinson's disease Sister Cancer Social History: household members spouse Tobacco & Substance use: Smoking Status Former smoker Meds Home Medications and Allergies Home Medications Medication Instructions Recorded Confirmed Type Vinny's Leg Cramp 1 tab PO BID 01/30/18 12/11/18 History cyanocobalamin (vitamin B-12) 5,000 mcg SUBLINGUAL DAILY 01/30/18 12/11/18 History [Vitamin B-12] aspirin 81 mg tablet,delayed 81 mg PO DAILY #90 tab 03/07/18 12/11/18 Rx release atorvastatin 10 mg tablet 10 mg PO DAILY #90 tab 03/07/18 12/11/18 Rx finasteride 5 mg tablet 5 mg PO DAILY #90 tab 07/31/18 12/11/18 Rx lisinopril 10 mg tablet 10 mg PO DAILY #90 tab 07/31/18 12/11/18 Rx tamsulosin 0.4 mg capsule 0.4 mg PO QDAY #90 cap 07/31/18 12/11/18 Rx Allergies Allergy/AdvReac Type Severity Reaction Status Date / Time shellfish derived Allergy Severe ANAPHYLACTIC Verified 12/11/18 08:17 [SHELLFISH DERIVED] SHOCK Review of Systems Review of Systems ROS Unobtainable: All systems reviewed & are unremarkable except as noted in HPI and below Exam Vital Signs (past 8 hours): - 12/11/18 08:21 Temperature 97.6 F Pulse Rate 91 H Respiratory Rate 17 Blood Pressure 146/78 H Oxygen Delivery Method Room Air Narrative Exam Narrative: General-adult male no acute distress, well nourished HEENT-moist mucous membranes, no scleral icterus Neck-supple with full range of motion, no lymphadenopathy Chest- no labored respirations, clear to auscultation bilaterally Cardiac-regular rate and rhythm Abdomen-soft, nontender, non distended Extremities-no edema, warm well perfused Neurological-alert and oriented x 3. No focal deficits Skin-normal temperature and turgor, no rashes or ulcers Assessment & Plan Assessment and plan (1) Screening for colon cancer: Current visit: Yes Status: Acute Assessment & Plan narrative: Patient is requiring colorectal screening. Colonoscopy is recommended. Technical details were discussed. Risks, benefits, alternatives explained. Risks including but not limited to sedation, aspiration, bleeding, pain, missed lesion, incomplete examination, need for further radiographic studies, colonic perforation, need for major abdominal surgery, and all attendant risks major surgery were discussed at length. All questions were answered to their satisfaction, and they voiced understanding.
[2018-12-11] MEDS: SODIUM CHLORIDE 0.9% 1,000 ML 200 ML IV (08:37)
[2018-12-11] MEDS: fentaNYL 250 MCG/5 ML INJ IV (08:50)
[2018-12-11] MEDS: MIDAZOLAM 5 MG/5 ML VIAL IV (09:01)
--- NOTE | 2018-12-11 09:12 | PM.OP.ENDO ---
Operative Date/Time/Diagnoses Date of procedure: 12/11/18 Time of procedure: 09:12 Pre-op diagnosis: screening colonoscopy Post-op diagnosis: same Procedure & Clinicians Study performed: Aborted colonoscopy Same procedure as scheduled: Yes Indications: 73-year-old male with a previous colonoscopy 5 years ago demonstrated polyps presents for screening Surgeon: Vini Cheney Procedure Notes SCOAP/Timeout: Performed Procedure in detail: A digital rectal exam was performed demonstrated external hemorrhoids. No internal masses. The scope was carefully inserted into the rectum. The scope was advanced to approximately 20-30 cm and the quality of the prep was poor. Despite multiple attempts at irrigating and flushing the scope was unable to safely visualize the intestinal lumen. Procedure was therefore aborted with the planned to re-prepped the patient and re-attempt endoscopy. Scope withdrawal time: Not applicable Sedation minutes: 6 Findings: other findings (Inadequate preparation) Impression: Inadequate preparation Post-procedure Recommendations: Other recommendation (Will need 2 day prep and re-attempt colonoscopy) Disposition: same day surgery
--- NOTE | 2018-12-11 09:25 | SUR.PHASEI ---
Arouses spontaneously, Resp unlabored, skin warm and dry throughout PACU. Asking questions, states that he doesn't understand why the prep was incomplete That never happened before. Declines fluids, preparing to transfer to [facility].
== END 2018-12-11 09:44 | disposition home or self-care (01) ==
PROVIDERS: Family Provider Student in an Organized Health Care Education/Training Program; PCP Student in an Organized Health Care Education/Training Program; Visit Provider Surgery
PROC: 0DJD8ZZ Inspection of Lower Intestinal Tract, Via Natural or Artificial Opening Endoscopic (ICD-10-PCS; CPT 45378; principal; 2018-12-11 09:45)
DX: Z86.010 Personal history of colon polyps (principal); Z53.09 Procedure and treatment not carried out because of other contraindication
CPT/HCPCS: G0104; J2250; J3010

== ENCOUNTER → 2018-12-22 11:50 | Outpatient (CLI) | payer MEDICARE, OTHER, SELFPAY ==
[2018-12-22 13:02] LABS: Alanine Aminotransferase 41 IU/L (21-72); Albumin 4.3 g/dL (3.5-5.0); Albumin Globulin Ratio 1.6 (1.0-2.8); Alkaline Phosphatase 82 U/L (38-126); Aspartate Aminotransferase 38 IU/L (17-59); Bilirubin Total 0.5 mg/dL (0.2-1.3); Blood Urea Nitrogen 19 mg/dL (9-20); Calcium 9.4 mg/dL (8.4-10.2); Carbon Dioxide 30 mmol/L (22-32); Chloride 100 mmol/L (98-107); Estimated Glomerular Filt Rate > 60.0 mL/min (>60); Globulin 2.7 g/dL (1.7-4.1); Glucose 112 mg/dL (80-110); HEMOLYSIS < 15 (0-50); Potassium 4.4 mmol/L (3.4-5.1); Sodium 140 mmol/L (137-145)
[2018-12-22 15:34] LABS: Vitamin D 25 Hydroxy (D3) 37.9 ng/mL (30.0-100.0)
== END ==
PROVIDERS: PCP Student in an Organized Health Care Education/Training Program; Visit Provider Student in an Organized Health Care Education/Training Program
DX: E55.9 Vitamin D deficiency, unspecified (principal); E87.5 Hyperkalemia; I10 Essential (primary) hypertension; Z79.899 Other long term (current) drug therapy
CPT/HCPCS: 36415; 80053; 82306

== ENCOUNTER 2018-12-25 09:03 | Day surgery (SDC) | payer MEDICARE, OTHER, SELFPAY ==
[2018-12-25] VITALS (10 sets, daily range): BP systolic 85–137; BP diastolic 52–74; PULSE 82–94; RESP 11–18; TEMP 36.1–37.2; O2SAT 95–99; BMI 27.1
[2018-12-25] MEDS: SODIUM CHLORIDE 0.9% 1,000 ML 200 ML IV (09:50)
--- NOTE | 2018-12-25 09:54 | PM.HP.1 ---
History of Present Illness History of Present Illness Date Patient Seen: 12/25/18 Time Patient Seen: 09:55 Chief complaint: [id number] Narrative: Patient presents for colorectal screening. They have never had any previous examination for such. On further history denies any recent gastrointestinal symptoms. No nausea, vomiting, abdominal pain, loss of appetite, unexplained weight loss, change in bowel habits, diarrhea, constipation, melena, hematochezia, or bright red blood per rectum. Patient History Medical History Benign non-nodular prostatic hyperplasia with lower urinary tract symptoms (Chronic 05/13/15) BPH (benign prostatic hyperplasia) (Chronic) Bruises easily (Acute) Cataracts, bilateral (Resolved 03/2016) Colon polyps (Resolved) Diverticulitis (Acute) Elevated PSA (Chronic) Enlarged prostate (Acute) Essential hypertension (Chronic 05/13/15) Former smoker (Acute) History of elevated PSA (Chronic) Hyperlipemia (Chronic) Hypertension (Chronic) Impaired vision (Acute) Pure hypercholesterolemia (Chronic 05/13/15) Wears dentures (Acute) Surgical History History of colonoscopy (Acute) Hx of cataract surgery (Resolved ~04/2016) Hx of prostate biopsy (Resolved ~2001) Family History Mother Parkinson's disease Sister Cancer Social History household members: spouse Smoking Status: Former smoker Family & Social History Family History Mother Parkinson's disease Sister Cancer Social History: household members spouse Tobacco & Substance use: Smoking Status Former smoker Meds Home Medications and Allergies Home Medications Medication Instructions Recorded Confirmed Type Vinny's Leg Cramp 1 tab PO BID 01/30/18 12/22/18 History Vitamin B-12 5,000 mcg SUBLINGUAL DAILY 01/30/18 12/22/18 History finasteride 5 mg tablet 5 mg PO DAILY #90 tab 07/31/18 12/22/18 Rx lisinopril 10 mg tablet 10 mg PO DAILY #90 tab 07/31/18 12/22/18 Rx tamsulosin 0.4 mg capsule 0.4 mg PO QDAY #90 cap 07/31/18 12/22/18 Rx aspirin 81 mg tablet,delayed 81 mg PO DAILY #90 tab 12/22/18 12/22/18 Rx release atorvastatin 10 mg tablet 10 mg PO DAILY #90 tab 12/22/18 12/22/18 Rx hydroxyzine HCl 25 mg tablet 25 mg PO TID PRN #30 tab 12/22/18 12/22/18 Rx mometasone 0.1 % topical cream 1 applictn TOP DAILY PRN #15 gram 12/22/18 12/22/18 Rx prednisone 10 mg tablet 20 mg PO DAILY 7 Days #10 tab 12/22/18 12/22/18 Rx Allergies Allergy/AdvReac Type Severity Reaction Status Date / Time shellfish derived Allergy Severe ANAPHYLACTIC Verified 12/25/18 09:47 [SHELLFISH DERIVED] SHOCK Review of Systems Review of Systems ROS Unobtainable: All systems reviewed & are unremarkable except as noted in HPI and below Exam Narrative Exam Narrative: General-no acute distress, well nourished HEENT-moist mucous membranes, no scleral icterus Neck-supple, no lymphadenopathy Chest- non labored respirations, clear to auscultation bilaterally Cardiac-regular rate no peripheral edema Abdomen-soft, nontender, non distended Extremities-warm, well perfused Neurological-alert and oriented, no focal deficits Assessment & Plan Assessment and plan (1) Screening for colon cancer: Current visit: Yes Status: Acute Assessment & Plan narrative: Patient is requiring colorectal screening. Colonoscopy is recommended. Technical details were discussed. Risks, benefits, alternatives explained. Risks including but not limited to sedation, aspiration, bleeding, pain, missed lesion, incomplete examination, need for further radiographic studies, colonic perforation, need for major abdominal surgery, and all attendant risks major surgery were discussed at length. All questions were answered to their satisfaction, and they voiced understanding.
--- NOTE | 2018-12-25 10:35 | PM.PREOP ---
Pre-operative Note Interval Note History & Physical reviewed/Exam performed by Physician: Yes Changes to H&P: No ASA Class (for procedural sedation): II
--- NOTE | 2018-12-25 10:43 | PM.OP.ENDO ---
Operative Date/Time/Diagnoses Date of procedure: 12/25/18 Time of procedure: 10:43 Pre-op diagnosis: screening colonoscopy Post-op diagnosis: same Procedure & Clinicians Study performed: colonoscopy Same procedure as scheduled: Yes Indications: 73-year-old male with a adenomatous polyp 5 years ago presents for screening. He underwent a colonoscopy 2 weeks ago that was aborted due to poor prep and here for re-attempt Surgeon: Vini Cheney Procedure Notes SCOAP/Timeout: performed Procedure in detail: Patient placed in left lateral decubitus position. Time out was performed. Procedural sedation was administered with Versed and Fentanyl. A rectal exam demonstrated no external hemorrhoids no internal masses. Colonoscopy scope was placed into the rectum and advanced through the colon to the cecum. The ileocecal valve was identified. The scope was then slowly withdrawn examining colon thoroughly in all directions. The colonoscopy was normal, there were no masses polyps colitis. There was extensive diverticulosis involving the entirety of the colon from cecum to rectum. The scope was retroflexed within the rectum demonstrated grade 1 internal hemorrhoids. The rectum was desufflated and the scope removed. Patient tolerated procedure well. Scope withdrawal time: 7 Sedation minutes: 28 Findings: diverticulosis and internal hemorrhoids Complications: none Impression: diverticulosis Post-procedure Recommendations: Colonscopy in 10 years and High fiber diet Disposition: same day surgery
[2018-12-25] MEDS: fentaNYL 250 MCG/5 ML INJ IV (11:07)
[2018-12-25] MEDS: MIDAZOLAM 5 MG/5 ML VIAL IV (11:07)
== END 2018-12-25 12:04 | disposition home or self-care (01) ==
PROVIDERS: Family Provider Student in an Organized Health Care Education/Training Program; PCP Student in an Organized Health Care Education/Training Program; Visit Provider Surgery
PROC: 0DJD8ZZ Inspection of Lower Intestinal Tract, Via Natural or Artificial Opening Endoscopic (ICD-10-PCS; CPT 45378; principal; 2018-12-25 11:00)
DX: Z86.010 Personal history of colon polyps (principal); N40.1 Benign prostatic hyperplasia with lower urinary tract symptoms; I10 Essential (primary) hypertension; E78.5 Hyperlipidemia, unspecified; K57.30 Diverticulosis of large intestine without perforation or abscess without bleeding; K64.0 First degree hemorrhoids
CPT/HCPCS: 45378; 99152; 99153; J2250; J3010

== ENCOUNTER → 2019-05-03 08:49 | Outpatient (CLI) | payer MEDICARE, OTHER, SELFPAY ==
[2019-05-03 10:34] LABS: Prostate Specific Antigen 2.36 ng/mL (0.10-4.00)
== END ==
PROVIDERS: PCP Student in an Organized Health Care Education/Training Program; Referring Provider Urology; Visit Provider Urology
DX: R97.20 Elevated prostate specific antigen [PSA] (principal); N40.1 Benign prostatic hyperplasia with lower urinary tract symptoms
CPT/HCPCS: 36415; 84153

== ENCOUNTER → 2019-06-01 10:21 | Outpatient (CLI) | payer MEDICARE, OTHER, SELFPAY ==
--- NOTE | 2019-06-01 | DI.US.S_ITS ---
PROCEDURE: US SCROTUM INDICATIONS: SCROTAL MASS TECHNIQUE: Real-time scanning was performed of the scrotum and testicles, with image documentation. Color and pulse Doppler interrogation was performed of both testicles. COMPARISON: None. FINDINGS: Right: Testicle is normal in size at 2.8 x 2.6 x 4.9 cm, and homogenous in echotexture. Epididymis is normal in overall size and morphology. No hydrocele or varicoceles. Overlying scrotal skin is normal in thickness. Left: Testicle is normal in size at 3.3 x 3.2 x 3.6 cm, and homogeneous in echotexture. Epididymis is normal in overall size and morphology except for what appears to be a large cyst on the left contiguous with the epididymis, and likely a epididymal cyst, measuring up to 5.5 x 4.8 x 5.2 cm with a smaller adjacent cyst measuring only 2.6 x 2.3 x 1.5 cm.. No hydrocele or varicoceles. Overlying scrotal skin is normal in thickness. Doppler: Color and pulse Doppler demonstrate normal and symmetric arterial flow in both testicles. IMPRESSION: No sign of testicular mass or inflammation. Large apparent epididymal cyst on the left measuring up to 5.5 cm with a smaller adjacent cyst also on the left contiguous with the epididymis measuring up to 2.6 cm. No hydrocele is found, no varicocele is seen. Dictated by: Blayne Coley M.D. on 06/01/2019 at 16:44 Approved by: Blayne Coley M.D. on 06/01/2019 at 16:46
== END ==
PROVIDERS: PCP Student in an Organized Health Care Education/Training Program; Referring Provider Student in an Organized Health Care Education/Training Program; Visit Provider Urology
DX: N50.89 Other specified disorders of the male genital organs (principal); N50.3 Cyst of epididymis
CPT/HCPCS: 76870

== ENCOUNTER → 2019-07-25 09:36 | Outpatient (CLI) | payer MEDICARE, OTHER, SELFPAY ==
[2019-07-25 11:01] LABS: Alanine Aminotransferase 23 IU/L (<50); Albumin 4.1 g/dL (3.5-5.0); Albumin Globulin Ratio 1.5 (1.0-2.8); Alkaline Phosphatase 72 U/L (38-126); Aspartate Aminotransferase 33 IU/L (17-59); Bilirubin Total 0.4 mg/dL (0.2-1.3); Bilirubin Unconjugated 0.3 mg/dL (0.0-1.1); Globulin 2.8 g/dL (1.7-4.1); HEMOLYSIS < 15 (0-50); Total Protein 6.9 g/dL (6.3-8.2)
== END ==
PROVIDERS: PCP Student in an Organized Health Care Education/Training Program; Referring Provider Student in an Organized Health Care Education/Training Program; Visit Provider Student in an Organized Health Care Education/Training Program
DX: Z79.899 Other long term (current) drug therapy (principal)
CPT/HCPCS: 36415; 80076

== ENCOUNTER → 2020-08-11 10:20 | Outpatient (CLI) | payer MEDICARE, OTHER, SELFPAY ==
[2020-08-11 11:39] LABS: Hemoglobin A1C% w Est Avg Glu 5.8 % (4.0-6.0)
[2020-08-11 11:43] LABS: BUN Creatinine Ratio 11.1 (6-22); Blood Urea Nitrogen 11 mg/dL (9-20); Calcium 9.2 mg/dL (8.4-10.2); Carbon Dioxide 30 mmol/L (22-32); Chloride 102 mmol/L (98-107); Estimated Glomerular Filt Rate > 60.0 mL/min (>60); Glucose 101 mg/dL (80-110); HEMOLYSIS < 15 (0-50); Potassium 4.2 mmol/L (3.4-5.1); Sodium 137 mmol/L (137-145)
== END ==
PROVIDERS: PCP Student in an Organized Health Care Education/Training Program; Referring Provider Student in an Organized Health Care Education/Training Program; Visit Provider Student in an Organized Health Care Education/Training Program
DX: I10 Essential (primary) hypertension (principal); R73.9 Hyperglycemia, unspecified
CPT/HCPCS: 36415; 80048; 83036

== ENCOUNTER → 2021-09-24 13:19 | Outpatient (CLI) | payer MEDICARE, OTHER, SELFPAY ==
[2021-09-24 15:44] LABS: BUN Creatinine Ratio 16.5 (6-22); Blood Urea Nitrogen 17 mg/dL (9-20); Calcium 9.1 mg/dL (8.4-10.2); Carbon Dioxide 29 mmol/L (22-32); Chloride 100 mmol/L (98-107); Estimated Glomerular Filt Rate > 60 mL/min (>60); Glucose 89 mg/dL (80-110); Potassium 4.7 mmol/L (3.4-5.1); Sodium 138 mmol/L (137-145)
[2021-09-25 02:28] LABS: HEMOLYSIS 16 (0-50); Prostate Specific Antigen 2.39 ng/mL (0.10-4.00)
== END ==
PROVIDERS: PCP Student in an Organized Health Care Education/Training Program; Referring Provider Student in an Organized Health Care Education/Training Program; Visit Provider Student in an Organized Health Care Education/Training Program
DX: R97.20 Elevated prostate specific antigen [PSA] (principal); I10 Essential (primary) hypertension
CPT/HCPCS: 36415; 80048; 84153

== ENCOUNTER → 2022-10-29 11:25 | Outpatient (CLI) | payer MEDICARE, OTHER, SELFPAY ==
[2022-10-29 13:07] LABS: Add Manual Diff / Slide Review NO; Basophils Absolute Auto 100 /uL (0-100); Basophils Percent Auto 0.9 % (0-2); Eosinophils Absolute Auto 200 /uL (0-450); Eosinophils Percent Auto 1.2 % (2-4); Hematocrit 39.9 % (41-53); Hemoglobin 13.4 g/dL (13.5-17.5); Lymphocytes Absolute Auto 1800 /uL (1100-4500); Lymphocytes Percent Auto 13.7 % (25-40); Mean Corpuscular HGB Conc 33.5 % (30-36); Mean Corpuscular Hemoglobin 30.3 PG (26-34); Mean Corpuscular Volume 90.2 fL (80-100); Monocytes Absolute Auto 700 /uL (0-900); Monocytes Percent Auto 5.8 % (3-14); Neutrophils Absolute Auto 10000 /uL (1500-7000); Neutrophils Percent Auto 78.4 % (50-75); Platelet Count 316 X10^3/uL (150-400); Red Blood Cell Count 4.42 X10^6/uL (4.5-5.9); Red Cell Distribution Width 13.4 % (11.6-14.8); White Blood Cell Count 12.8 X10^3/uL (4.5-11.0)
[2022-10-29 14:29] LABS: Alanine Aminotransferase 19 IU/L (<50); Albumin 4.2 g/dL (3.5-5.0); Albumin Globulin Ratio 1.6 (1.0-2.8); Alkaline Phosphatase 74 U/L (38-126); Aspartate Aminotransferase 27 IU/L (17-59); BUN Creatinine Ratio 14.4 (6-22); Bilirubin Total 0.7 mg/dL (0.2-1.3); Blood Urea Nitrogen 14 mg/dL (9-20); Calcium 9.2 mg/dL (8.4-10.2); Carbon Dioxide 26 mmol/L (22-32); Chloride 99 mmol/L (98-107); Cholesterol 141 mg/dL (140-199); Estimated Glomerular Filt Rate > 60 mL/min (>60); Globulin 2.7 g/dL (1.7-4.1); Glucose 87 mg/dL (80-110); HDL Cholesterol 44 mg/dL (40-60); HEMOLYSIS < 15 (0-50); LDL Cholesterol Calculated 78 mg/dL (<100); Potassium 4.6 mmol/L (3.4-5.1); Sodium 134 mmol/L (137-145); Total Protein 6.9 g/dL (6.3-8.2); Triglycerides 97 mg/dL (35-150)
[2022-10-29 15:01] LABS: Prostate Specific Antigen Scrn 2.76 ng/mL (0.1-4.0)
[2022-10-29 17:01] LABS: Appearance Urine UA CLEAR; Bilirubin Urine UA NEGATIVE (NEGATIVE); Color Urine UA YELLOW; Glucose Urine UA NEGATIVE (Negative); Ketones Urine UA NEGATIVE (NEGATIVE); Leukocyte Esterase Urine UA NEGATIVE (NEGATIVE); Nitrite Urine UA NEGATIVE (Negative); Occult Blood Urine UA NEGATIVE (Negative); Protein Urine UA NEGATIVE (Negative); Specific Gravity Urine UA 1.015 (1.000-1.035)
[2022-10-29 17:17] LABS: RBC Urine 0-1/HPF (0-5/HPF)
[2022-10-29 17:18] LABS: Bacteria Urine Occasional (0-1); Culture Indicated Urine Cult Not Indicated; Squamous Epithelial Cell Urine 0-1 /HPF (0-5/HPF)
[2022-10-29 17:20] LABS: WBC Urine 1-5/HPF (0-5/HPF)
== END ==
PROVIDERS: PCP Pediatrics; Referring Provider Pediatrics; Visit Provider Pediatrics
DX: E78.00 Pure hypercholesterolemia, unspecified (principal); Z12.5 Encounter for screening for malignant neoplasm of prostate; I10 Essential (primary) hypertension; N40.1 Benign prostatic hyperplasia with lower urinary tract symptoms; R73.03 Prediabetes; R97.20 Elevated prostate specific antigen [PSA]; Z00.00 Encounter for general adult medical examination without abnormal findings
CPT/HCPCS: 36415; 80053; 80061; 81001; 84443; 85025; G0103

== ENCOUNTER → 2023-10-31 10:18 | Outpatient (CLI) | payer MEDICARE, OTHER, SELFPAY ==
[2023-10-31 11:17] LABS: Hemoglobin A1C% w Est Avg Glu 5.6 % (4.0-6.0)
[2023-10-31 11:25] LABS: Alanine Aminotransferase 16 IU/L (<50); Albumin 4.2 g/dL (3.5-5.0); Albumin Globulin Ratio 1.6 (1.0-2.8); Alkaline Phosphatase 83 U/L (38-126); Aspartate Aminotransferase 24 IU/L (17-59); BUN Creatinine Ratio 13.7 (6-22); Bilirubin Total 0.7 mg/dL (0.2-1.3); Blood Urea Nitrogen 14 mg/dL (9-20); Calcium 9.2 mg/dL (8.4-10.2); Carbon Dioxide 27 mmol/L (22-32); Chloride 105 mmol/L (98-107); Cholesterol 143 mg/dL (140-199); Estimated Glomerular Filt Rate > 60 mL/min (>60); Globulin 2.7 g/dL (1.7-4.1); Glucose 103 mg/dL (80-110); HDL Cholesterol 44 mg/dL (40-60); HEMOLYSIS < 15 (0-50); LDL Cholesterol Calculated 82 mg/dL (<100); Potassium 4.5 mmol/L (3.4-5.1); Sodium 137 mmol/L (137-145); Total Protein 6.9 g/dL (6.3-8.2); Triglycerides 87 mg/dL (35-150)
[2023-10-31 16:00] LABS: Hep C Virus Ab w/Reflex Quant NEGATIVE s/c (NEGATIVE)
== END ==
PROVIDERS: PCP Family Medicine; Referring Provider Family Medicine; Visit Provider Family Medicine
DX: Z00.00 Encounter for general adult medical examination without abnormal findings (principal); R73.03 Prediabetes; I10 Essential (primary) hypertension; Z86.73 Personal history of transient ischemic attack (TIA), and cerebral infarction without residual deficits; E78.00 Pure hypercholesterolemia, unspecified
CPT/HCPCS: 36415; 80053; 80061; 83036; 86803

== ENCOUNTER → 2024-04-26 09:54 | Outpatient (CLI) | payer MEDICARE, OTHER, SELFPAY ==
[2024-04-26 10:42] LABS: Hemoglobin A1C% w Est Avg Glu 5.5 % (4.0-6.0)
[2024-04-26 10:51] LABS: BUN Creatinine Ratio 14.3 (6-22); Blood Urea Nitrogen 15 mg/dL (9-20); Calcium 9.4 mg/dL (8.4-10.2); Carbon Dioxide 28 mmol/L (22-32); Chloride 101 mmol/L (98-107); Cholesterol 139 mg/dL (140-199); Estimated Glomerular Filt Rate > 60 mL/min (>60); Glucose 115 mg/dL (80-110); HDL Cholesterol 50 mg/dL (40-60); HEMOLYSIS < 15 (0-50); LDL Cholesterol Calculated 72 mg/dL (<100); Potassium 4.5 mmol/L (3.4-5.1); Sodium 137 mmol/L (137-145); Triglycerides 86 mg/dL (35-150)
== END ==
PROVIDERS: PCP Family Medicine; Referring Provider Family Medicine; Visit Provider Family Medicine
DX: R73.03 Prediabetes (principal); E78.00 Pure hypercholesterolemia, unspecified; Z86.73 Personal history of transient ischemic attack (TIA), and cerebral infarction without residual deficits; I10 Essential (primary) hypertension
CPT/HCPCS: 36415; 80048; 80061; 83036